=== PATIENT | female | born 1950 | race Caucasian/White ===

== ENCOUNTER 2017-09-21 09:33 | Day surgery (SDC) | payer OTHER ==
[~2017-09-21] VITALS: Ht 162.6 cm; Wt 90.3 kg
[~2017-09-21 09:33] MED LIST: ALBU90OI6 INH; ASPI325 PO; ASPI81EC; Advair Hfa 45-212 GM INH; CIPR500 PO; DIAZ2 PO; Flonase 0.05% N16 GM; MEDICAL MARIJUANA; VAGIFEM10 MCG VG
== END 2017-09-21 13:10 | disposition home or self-care (01) ==
LOC: ORSCSDS 09:33
PROVIDERS: Podiatrist Foot & Ankle Surgery
PROC: 0SBM0ZX Excision of Right Metatarsal-Phalangeal Joint, Open Approach, Diagnostic (ICD-10-PCS; principal; 2017-09-21 11:00)
DX: M20.21 Hallux rigidus, right foot (principal); G47.33 Obstructive sleep apnea (adult) (pediatric); J45.909 Unspecified asthma, uncomplicated; Z87.891 Personal history of nicotine dependence; Z79.82 Long term (current) use of aspirin; Z79.899 Other long term (current) drug therapy
CPT/HCPCS: J0690; J2250; J3010; J7120

== ENCOUNTER → 2018-09-24 | Outpatient (CLI) | payer OTHER | END | disposition home or self-care (01) | LOC: LAB EV 10:00 → LAB SHORT 10:00 | DX: N30.00 Acute cystitis without hematuria (principal) | CPT/HCPCS: 87077; 87086; 87186 ==

== ENCOUNTER → 2018-10-15 | Outpatient (CLI) | payer OTHER ==
[2018-10-17 12:07] LABS: HPV 16 Negative (Negative); HPV 18 Negative (Negative); HPV OTHER HR TYPES Negative (Negative)
== END | disposition home or self-care (01) ==
LOC: LAB 17:39 → LAB SHORT 17:39
PROVIDERS: Nurse Practitioner Women's Health
DX: Z12.72 Encounter for screening for malignant neoplasm of vagina (principal); N89.8 Other specified noninflammatory disorders of vagina; Z91.89 Other specified personal risk factors, not elsewhere classified
CPT/HCPCS: 87070; 87205; 87624; G0123

== ENCOUNTER 2018-11-06 09:06 | Observation (INO) | payer OTHER ==
[~2018-11-06] VITALS: Ht 162.6 cm; Wt 91.9 kg
[2018-11-06 09:36] LABS: BASOPHILS ABSOLUTE AUTO 0.07 K/mm3 (0.00-0.23); BASOPHILS PERCENT AUTO 1 % (0-2); EOSINOPHILS ABSOLUTE AUTO 0.12 K/mm3 (0.00-0.68); EOSINOPHILS PERCENT AUTO 1 % (0-6); Hematocrit 30.1 % (33.0-51.0); IMMATURE GRAN ABSOLUTE AUTO 0.06 K/mm3 (0.00-0.10); IMMATURE GRAN PERCENT AUTO 1 % (0-1); LYMPHOCYTES ABSOLUTE AUTO 1.17 K/mm3 (0.84-5.20); LYMPHOCYTES PERCENT AUTO 14 % (21-46); MONOCYTES ABSOLUTE AUTO 0.68 K/mm3 (0.16-1.47); MONOCYTES PERCENT AUTO 8 % (4-13); Mean Corpuscular HGB 33.3 pg (26.0-34.0); Mean Corpuscular HGB Conc 33.2 g/dL (31.5-36.5); Mean Corpuscular Volume 100 fL (80-100); Mean Platelet Volume 10.4 fL (9.1-12.4); NEUTROPHILS ABSOLUTE AUTO 6.36 K/mm3 (1.96-9.15); NEUTROPHILS PERCENT AUTO 75 % (41-73); Platelet Count 251 K/mm3 (150-400); RDW Coefficient Variation 11.9 % (11.7-14.2); RDW Standard Deviation 43.1 fL (35.1-46.3); White Blood Cell Count 8.46 K/mm3 (4.00-11.30)
[2018-11-06 09:59] LABS: Alanine Aminotransfer (ALT/SGP 53 U/L (12-78); Alk Phos 77 U/L (50-136); Anion Gap 6 mmol/L (6-16); Aspartate Aminotrans (AST/SGOT 26 U/L (12-37); Bilirubin, Total 0.2 mg/dL (0.1-1.0); Blood Urea Nitrogen 40 mg/dL (8-24); Bun/Creatinine Ratio 69.1 (12.0-20.0); CO2, Blood 26 mmol/L (21-32); Calcium, Blood 7.8 mg/dL (8.5-10.1); Chloride, Blood 111 mmol/L (98-108); Creatinine, Blood 0.58 mg/dL (0.40-1.00); Globulin, Blood 2.9 g/dL (2.2-4.0); Glomerular Filtration Rate >60 (60-); Glucose, Blood 120 mg/dL (70-99); Potassium, Blood 4.7 mmol/L (3.5-5.5); Sodium, Blood 143 mmol/L (136-145); Total Protein, Blood 5.9 g/dL (6.4-8.2)
--- NOTE | 2018-11-06 12:55 | NUR ---
History, Chart, Medications and Allergies reviewed before start of procedure.Patient confirms NPO status and agrees with scheduled surgery.
--- NOTE | 2018-11-06 13:18 | NUR ---
11/06/18 1318 Jorge Luis Brown PATIENT DETERMINED TO BE ASA APPROPRIATE FOR PROPOFOL SEDATION PRIOR TO START OF PROCEDURE BY DR. Luis Fernando Last Placed3-LEAD EKG REVIEWED WITH PHYSICIAN PRIOR TO START OF PROCEDURE.Patient to ENDO 1History, Chart, Medications and Allergies reviewed before start of procedure.MONITOR INTACT WITH CONTINUOUS PULSE OXIMETRY AND INTERMITTENT BP.O2 VIA N/C INTACT THROUGHOUT SEDATION/PROCEDURE.
[2018-11-06] MEDS ORDERED: CHOL10002 PO (14:52)
[2018-11-06 15:04] LABS: Hematocrit 27.3 % (33.0-51.0); Hemoglobin 9.2 g/dL (11.5-16.0)
--- NOTE | 2018-11-06 18:31 | NUR ---
SHIFT SUMMARY: Pt arrived to the unit at about 1500 from Day surgery post upper Endo. At that time pt was C/O severe sharp abd pain in her epigastric region. Stated that she would get relief with beltching and passing flatus. Encouraged Pt to move around in bed to increase motility. LS were clear but biox was 87% on RA. Placed on oxygen at that time, 2L NC. Was able to remove oxygen after about an hour and PT was more awake. HR reg to ST in the 110's throughout shift. BT hyperactive and patient has passed a lot of flatus this shift. VSS throughout shift. Pt on Protonix gtt per orders. Has remained stable this shift. Will report to night RN.
--- NOTE | 2018-11-06 18:53 | NUR ---
Update: plant technician/control room operator just called, PT HR up in the 110's. RN into room. Pt States "i'm freezing!". Low grade temp of 99.8, Pt has warm blankets on. But temp countinues to increase. Medicated with tylenol. Breathing tx called for increased resp. VS taken and other VSS. REport given to night RN.
--- NOTE | 2018-11-06 19:40 | NUR ---
ASSUMED CARE PT RESTING IN ROOM COMFORTABLY. PER DAY SHIFT PT HAD SOME ABD DISCOMFORT RIGHT BEFORE SHIFT CHANGE, PT ABLE TO BELCH AND PASS FLATUS FOR RELIEF. PT IS SLIGHTLY FEBRILE AT THIS TIME AND TAHCYCARDIC. PT WAS MEDICATED PER EMAR FOR FEVER BY DAY SHIFT. WILL MONITOR TEMP. PT REPORTS FEELS BETTER AND MORE COMFORTABLE. OTHER VSS. WILL CONTINUE TO MONITOR FEVER. PT IS SBA TO BSC. RESP EVEN UNLABORED ON RA. SATS >92%. DENIES CP OR SOB. CALL LIGHT IN REACH.
[2018-11-06 19:51] LABS: Source, Urine Clean Catch
[2018-11-06 20:03] LABS: Bilirubin, Urine Neg (Neg); Blood, Urine Neg (Neg); Glucose Qualitative, Urine Neg (Neg); Ketones, Urine Neg (Neg); Leukocyte Esterase, Urine Neg (Neg); Nitrite, Urine Neg (Neg); Protein, Urine Neg (Neg); Specific Gravity, Urine 1.015 (1.003-1.022); Urobilinogen, Urine NORM (Normal)
[2018-11-06 20:08] LABS: Hematocrit 27.5 % (33.0-51.0); Hemoglobin 9.4 g/dL (11.5-16.0)
[2018-11-06 20:46] LABS: Appearance, Urine Clear (Clear); Color, Urine Pale Yellow (P-Yellow)
[2018-11-07 02:10] LABS: Hematocrit 25.1 % (33.0-51.0); Hemoglobin 8.3 g/dL (11.5-16.0)
[2018-11-07 02:27] LABS: Anion Gap 7 mmol/L (6-16); Blood Urea Nitrogen 24 mg/dL (8-24); CO2, Blood 27 mmol/L (21-32); Calcium, Blood 7.9 mg/dL (8.5-10.1); Chloride, Blood 110 mmol/L (98-108); Creatinine, Blood 0.67 mg/dL (0.40-1.00); Glomerular Filtration Rate >60 (60-); Glucose, Blood 130 mg/dL (70-99); Potassium, Blood 4.2 mmol/L (3.5-5.5); Sodium, Blood 144 mmol/L (136-145)
--- NOTE | 2018-11-07 05:45 | NUR ---
SHIFT SUMMARY PT SLEEPING IN ROOM COMFORTABLY. PT HAD NO ACUTE CHANGES IN STATUS OVERNIGHT. SLIGHT FEVER NOTED EARLY IN SHIFT. PT WAS MEDICATED PER EMAR FOR FEVER. TEMP REDUCED AND PT REPORTED FEELING COMFORTABLE AND SLEPT WELL AFTER FEVER REDUCED. KCL INFUSING IN PIV, W/ PROTONIX GTT INFUSING IN ANOTHER PIV. PT CALLS APPROPRIATELY. [facility]
--- NOTE | 2018-11-07 07:30 | NUR ---
AM assessment: Pt sitting up at edge of bed with at bedside. States that she is feeling good today, just a little weak and tired. VSS. LS clear. HR reg. BT positive. Denies abd pain or nausea. Pt did not have any emisis last noc. No BM yet today. Tolerating CL diet. PT hopes to be discharged today. Call light in reach. Will continue to monitor.
[2018-11-07 08:20] LABS: Hematocrit 23.6 % (33.0-51.0); Hemoglobin 7.9 g/dL (11.5-16.0)
[2018-11-07 14:49] LABS: Hemoglobin 8.1 g/dL (11.5-16.0)
[2018-11-07] MEDS ORDERED: OMEPRAZOLE MAGN20 MG PO (17:48)
--- NOTE | 2018-11-07 18:49 | NUR ---
DISHCARGE: Pt was given verbal and written discharge instructions. Denies questions. Rx was called to [facility] in [place]. IV's discontinued, caths intact. Pt left via w/c. Stable at time of discharge.
== END 2018-11-07 18:48 | disposition home or self-care (01) ==
LOC: ER 09:06 → PCU 09:07 → ER 11:20 → ERHOLD 11:20 → PCU 12:40 → ERHOLD 14:34 → PCU 14:34
PROVIDERS: Physician Assistant; Student in an Organized Health Care Education/Training Program; ADMIT Internal Medicine
PROC: 0W3P8ZZ Control Bleeding in Gastrointestinal Tract, Via Natural or Artificial Opening Endoscopic (ICD-10-PCS; principal; 2018-11-06 14:00)
DX: K26.4 Chronic or unspecified duodenal ulcer with hemorrhage (principal); T39.395A Adverse effect of other nonsteroidal anti-inflammatory drugs [NSAID], initial encounter; K92.0 Hematemesis; D50.0 Iron deficiency anemia secondary to blood loss (chronic); E78.5 Hyperlipidemia, unspecified; J45.909 Unspecified asthma, uncomplicated; M19.90 Unspecified osteoarthritis, unspecified site; Z88.1 Allergy status to other antibiotic agents; Z88.2 Allergy status to sulfonamides; Z79.51 Long term (current) use of inhaled steroids; Z79.899 Other long term (current) drug therapy
CPT/HCPCS: 36415; 71046; 80048; 80053; 81003; 82272; 83690; 85014; 85018; 85025; 86850; 86900; 86901; 93005; 93010; 94640; 94760; 96361; 96365; 96375; 96376; 99285-25; C9113; G0378; J2405; J2765; J3480; J7120

== ENCOUNTER 2018-12-17 12:22 | Day surgery (SDC) | payer OTHER ==
[~2018-12-17] VITALS: Ht 162.6 cm; Wt 86.4 kg
[~2018-12-17 12:22] MED LIST changes: +CHOL10002 PO; +OMEPRAZOLE MAGN20 MG PO
[2018-12-17] MEDS ORDERED: Zantac150 MG (13:38)
== END 2018-12-17 15:42 | disposition home or self-care (01) ==
LOC: ORSCSDS 12:22
PROVIDERS: Internal Medicine Gastroenterology
PROC: 0DBP8ZX Excision of Rectum, Via Natural or Artificial Opening Endoscopic, Diagnostic (ICD-10-PCS; principal; 2018-12-17 13:45)
PROC: 0DB68ZX Excision of Stomach, Via Natural or Artificial Opening Endoscopic, Diagnostic (ICD-10-PCS; principal; 2018-12-17 13:45)
PROC: 0DBM8ZX Excision of Descending Colon, Via Natural or Artificial Opening Endoscopic, Diagnostic (ICD-10-PCS; principal; 2018-12-17 13:45)
PROC: 0DBK8ZX Excision of Ascending Colon, Via Natural or Artificial Opening Endoscopic, Diagnostic (ICD-10-PCS; principal; 2018-12-17 13:45)
DX: Z87.11 Personal history of peptic ulcer disease (principal); K20.9 Esophagitis, unspecified; K44.9 Diaphragmatic hernia without obstruction or gangrene; Z12.11 Encounter for screening for malignant neoplasm of colon; D12.2 Benign neoplasm of ascending colon; D12.4 Benign neoplasm of descending colon; K62.1 Rectal polyp; K64.8 Other hemorrhoids; K57.10 Diverticulosis of small intestine without perforation or abscess without bleeding; I10 Essential (primary) hypertension; J45.909 Unspecified asthma, uncomplicated; E78.00 Pure hypercholesterolemia, unspecified; Z87.891 Personal history of nicotine dependence; Z79.899 Other long term (current) drug therapy
CPT/HCPCS: J2704; J7120

== ENCOUNTER → 2019-02-12 | Outpatient (CLI) | payer OTHER ==
[~2019-02-12] MED LIST changes: +Zantac150 MG
== END | disposition home or self-care (01) ==
LOC: LAB SHORT 17:47 → LAB EV 17:47
DX: R30.0 Dysuria (principal)
CPT/HCPCS: 87077; 87086; 87186

== ENCOUNTER → 2021-01-06 | Outpatient (CLI) | payer OTHER | LOC: LAB 12:20 → LAB SHORT 12:20 | DX: R30.9 Painful micturition, unspecified (principal) | CPT/HCPCS: 87077; 87086; 87186 ==

== ENCOUNTER → 2022-08-18 | Outpatient (CLI) | payer OTHER ==
[2022-08-18 15:31] LABS: Protein, Urine Quantitative <5.0 mg/dL (0.0-11.9)
== END ==
LOC: LAB 08:05 → LAB SHORT 08:05
PROVIDERS: Family Medicine
DX: N04.9 Nephrotic syndrome with unspecified morphologic changes (principal); H05.223 Edema of bilateral orbit; N28.9 Disorder of kidney and ureter, unspecified; R22.40 Localized swelling, mass and lump, unspecified lower limb; R82.90 Unspecified abnormal findings in urine
CPT/HCPCS: 81050; 84156

== ENCOUNTER 2023-03-20 12:31 | Day surgery (SDC) | payer OTHER ==
[~2023-03-20] VITALS: Ht 160 cm; Wt 85.1 kg
[2023-03-20] MEDS ORDERED: METO25ER (12:57)
[2023-03-20] MEDS ORDERED: METAMUCIL POWD798 GM (12:58)
[2023-03-20 14:31] VITALS: BP 131/87
== END 2023-03-20 14:38 | disposition home or self-care (01) ==
LOC: ORSCSDS 12:31
PROVIDERS: Specialist
PROC: 0DBP8ZX Excision of Rectum, Via Natural or Artificial Opening Endoscopic, Diagnostic (ICD-10-PCS; principal; 2023-03-20 14:00)
DX: K92.1 Melena (principal); Z86.010 Personal history of colon polyps; K62.1 Rectal polyp; K64.8 Other hemorrhoids; K57.30 Diverticulosis of large intestine without perforation or abscess without bleeding; J45.909 Unspecified asthma, uncomplicated; Z79.899 Other long term (current) drug therapy; E66.9 Obesity, unspecified; Z68.34 Body mass index [BMI] 34.0-34.9, adult
CPT/HCPCS: 88305; J2704; J7120